=== PATIENT | female | born 1995 ===

== ENCOUNTER 2018-05-29 13:50 | Emergency (ER) | payer OTHER ==
[~2018-05-29] VITALS: Ht 167.6 cm; Wt 81.6 kg
[2018-05-29] MEDS ORDERED: ALTACE5 MG (13:55)
[2018-05-29] MEDS ORDERED: ZOLOFT25 MG (13:55)
== END 2018-05-29 22:32 | disposition home or self-care (01) ==
LOC: ER 13:50
DX: K59.09 Other constipation (principal); R10.2 Pelvic and perineal pain